=== PATIENT | male | born 1960 | race Caucasian/White ===

== ENCOUNTER → 2024-04-16 | Day surgery (SDC) | payer OTHER ==
[~2024-04-16] MED LIST: ALLOPURINOL300 MG PO; DEXMEDETOMIDINE HCL 200 MCG/2 ML VIAL ONE; DIOVAN80 MG PO; FENTANYL CITRATE/PF 100MCG/2 ML INJ ONE; LIDOCAINE HCL 2% LOCAL INJ 5 ML SDV VIAL INJ ONE; OMEPRAZOLE40 MG PO; POTASSIUM; PROPOFOL IV EMULSION 10 MG/ML 50 ML VIAL IV ONE; PROPOFOL IV EMULSION 50 ML IV ONE; SIMVASTATIN40 MG PO
[2024-04-16] MEDS: LACTATED RINGER'S 1,000 ML ONE (13:50)
[2024-04-16 16:50] LABS: WBC,FECAL (FECAL LACTOFERRIN) NEGATIVE (NEGATIVE)
[2024-04-16 17:00] VITALS: BP 127/80; PULSE 70; RESP 17; TEMP 97.1; O2SAT 97
[2024-04-17 09:54] LABS: C-REACTIVE PROTEIN 3 mg/L (0-10)
[2024-04-19 19:09] LABS: ENDOMYSIAL ANTIBODIES, IGA Negative (Negative)
[2024-04-19 20:13] LABS: IMMUNOGLOBULIN A 146 mg/dL (61-437); TISSUE TRANSGLUTAMINASE IGA AB <2 U/mL (0-3)
== END | disposition home or self-care (01) ==
LOC: OR 13:24
PROVIDERS: ATTEND Internal Medicine Gastroenterology
DX: K29.70 Gastritis, unspecified, without bleeding (principal); D12.8 Benign neoplasm of rectum; K31.7 Polyp of stomach and duodenum; K52.9 Noninfective gastroenteritis and colitis, unspecified; K20.90 Esophagitis, unspecified without bleeding; K21.9 Gastro-esophageal reflux disease without esophagitis; K31.89 Other diseases of stomach and duodenum; K57.30 Diverticulosis of large intestine without perforation or abscess without bleeding; K44.9 Diaphragmatic hernia without obstruction or gangrene; K22.89 Other specified disease of esophagus; K62.89 Other specified diseases of anus and rectum; K64.8 Other hemorrhoids; Z71.3 Dietary counseling and surveillance; I10 Essential (primary) hypertension; E78.5 Hyperlipidemia, unspecified; Z88.6 Allergy status to analgesic agent; Z88.8 Allergy status to other drugs, medicaments and biological substances; Z01.810 Encounter for preprocedural cardiovascular examination; Z79.899 Other long term (current) drug therapy; Z68.28 Body mass index [BMI] 28.0-28.9, adult; Z85.46 Personal history of malignant neoplasm of prostate; Z85.828 Personal history of other malignant neoplasm of skin; Z87.19 Personal history of other diseases of the digestive system
CPT/HCPCS: 43239; 43251; 45380; 45385; 82784; 83516; 83630; 83993; 86140; 86256; 87045; 87177; 87324; 87328; 87449; 93005; J2001; J2470; J2704; J3010; J7121; 45384

== ENCOUNTER → 2024-07-14 | Day surgery (SDC) | payer OTHER ==
[2024-07-09 11:36] LABS: BASOPHILS # (AUTO) 0.1 (0.0-0.1); BASOPHILS % 1.1 % (0.0-1.0); EOSINOPHILS % 0.7 % (0.0-6.0); HEMATOCRIT 48.2 % (38.2-49.6); HEMOGLOBIN 16.1 g/dL (14.0-18.0); LYMPHOCYTES # (AUTO) 1.5 (1.0-3.2); LYMPHOCYTES % 26.6 % (18.0-39.1); MEAN CORPUSCULAR HEMOGLOBIN 32.3 pg (28-32); MEAN CORPUSCULAR HGB CONC 33.4 g/dL (31-35); MEAN CORPUSCULAR VOLUME 96.8 fL (81-99); MONOCYTES # (AUTO) 0.5 (0.2-0.8); MONOCYTES % 9.3 % (4.4-11.3); NEUTROPHILS # (AUTO) 3.5 (2.1-6.9); NEUTROPHILS % 61.8 % (38.7-80.0); PLATELET COUNT 171 x10e3/uL (140-360); RED BLOOD COUNT 4.98 x10e6/uL (4.3-5.7); RED CELL DISTRIBUTION WIDTH 12.7 % (11.7-14.4); WHITE BLOOD COUNT 5.68 x10e3/uL (4.8-10.8)
[2024-07-09 11:54] LABS: ANION GAP 15.3 mmol/L (8-16); CALCIUM 8.9 mg/dL (8.4-10.2); CREATININE, SERUM 0.87 mg/dL (0.72-1.25); POTASSIUM 4.3 mmol/L (3.5-5.1)
[~2024-07-14] MED LIST changes: +ACETAMINOPHEN 1000 MG/100 ML 100 ML IV ONE; +AMBIEN10 MG PO; -DEXMEDETOMIDINE HCL 200 MCG/2 ML VIAL ONE; +HYDROCODONE/APAP 7.5MG-325MG 1 EA TAB ONE; +MIDAZOLAM HCL 2 MG/2 ML VIAL ONE; +ONDANSETRON HCL INJ 2MG/ML 2ML 2 MG/ML VIAL ONE; +PROPOFOL IV EMULSION 10 MG/ML 20 ML VIAL ONE; -PROPOFOL IV EMULSION 10 MG/ML 50 ML VIAL IV ONE; -PROPOFOL IV EMULSION 50 ML IV ONE; +SEVOFLURANE INHAL SOLN 250 ML PEN BTL ONE
[2024-07-14] MEDS: CEFAZOLIN SODIUM 2 GM ONE (06:07)
[2024-07-14] MEDS: LACTATED RINGER'S 1,000 ML ONE (06:08)
[2024-07-14] MEDS: FENTANYL CITRATE/PF 100MCG/2 ML INJ ONE (09:00)
[2024-07-14 09:20] VITALS: BP 112/65; PULSE 63; RESP 17; TEMP 97.6; O2SAT 96
== END | disposition home or self-care (01) ==
LOC: OR 05:18
PROVIDERS: ATTEND Podiatrist Foot Surgery
DX: S93.321A Subluxation of tarsometatarsal joint of right foot, initial encounter (principal); M20.11 Hallux valgus (acquired), right foot; Q66.211 Congenital metatarsus primus varus, right foot; M20.41 Other hammer toe(s) (acquired), right foot; G57.61 Lesion of plantar nerve, right lower limb; I10 Essential (primary) hypertension; E78.5 Hyperlipidemia, unspecified; K21.9 Gastro-esophageal reflux disease without esophagitis; Z88.6 Allergy status to analgesic agent; Z88.8 Allergy status to other drugs, medicaments and biological substances; Z01.810 Encounter for preprocedural cardiovascular examination; Z01.812 Encounter for preprocedural laboratory examination; Z01.818 Encounter for other preprocedural examination; Z79.899 Other long term (current) drug therapy
CPT/HCPCS: 28080 ×2; 28285 ×2; 28297; 36415; 71046; 73620; 80048; 85025; 88304; 93005; C1713 ×2; J0131; J2003; J2250; J2405; J2704; J3010; J7121